=== PATIENT | female | born 1945 | race Caucasian/White ===

== ENCOUNTER 2018-07-24 10:28 | Outpatient (CLI) | payer MEDICARE, OTHER ==
[~2018-07-24] VITALS: Ht 171.4 cm; Wt 88.6 kg
--- NOTE | ~2018-07-24 | OP ---
PATIENT NAME: HORTENSIA WADE MEDICAL RECORD: [id number] :[birth year] LOCATION:D.CAT ADMISSION DATE: SURGEON: TYESHA RAMOS MD DATE OF OPERATION: 07/24/2018 PROCEDURES: 1. Left heart catheterization. 2. Selective coronary angiography. 3. Left ventriculogram. 4. Four-vessel carotid vertebral angiography. INDICATION: Angina, coronary artery disease, chest pain, abnormal ECG, dysrhythmia, syncope. PROCEDURE IN DETAIL: After informed consent was obtained and after detailed description of risks and benefits as well as alternative therapies, the patient elected to proceed with angiogram and heart catheterization. The right femoral area was prepped and draped in normal sterile fashion. Right femoral artery was recannulated via modified Seldinger technique with placement of 5-Malaysian sheath. All catheters were exchanged through this sheath. FINDINGS: There was subselection of each subclavian as well as left carotid. RIGHT SIDE: The common internal and external carotids have mild plaquing, none greater than 20%. No flow-limiting stenosis. Vertebral artery has no significant disease. LEFT SYSTEM: The common internal and external carotids have mild plaquing, none greater than 20%. No flow-limiting stenosis. Left ventriculogram was performed in standard 30-degree JACOBSON view, reveals good cardiac wall motion throughout all segments. Overall ejection fraction is estimated at 60%. SELECTIVE CORONARY ANGIOGRAPHY: Left main, left anterior descending, left circumflex, and right coronary are all smooth-walled vessels with no angiographic evidence of coronary artery disease. OVERALL IMPRESSION: 1. No angiographic evidence of coronary artery disease. 2. No significant carotid vascular disease is present. Unknown etiology of the syncope. Chest pain is noncardiac in etiology. We will give the patient a multiday monitor to monitor for dysrhythmia. TRANSINT:[id number] Voice Confirmation ID: [id number] DOCUMENT ID: [id number] TYESHA RAMOS MD at 1806 CC: [id number] DICTATION DATE: 07/24/18 1531 LOCKSTITCH BACK MAKER: 07/24/18 1632 DEP CLI 07/24/18 [place] [address]
--- NOTE | ~2018-07-24 | HEMODYNAMI ---
PATIENT:HORTENSIA WADE MEDICAL RECORD: [id number] : 49 LOCATION:[facility]IO ADMISSION DATE: 07/24/18 Generatedon:07/24/201815:34 Patient name: HORTENSIA WADE Patient #: [id number] SSN: : 1945 Date of study: 07/24/2018 Page: Of Hemodynamic Procedure Report Patient Data Patient Demographics Procedure consent was obtained First Name: HORTENSIA Gender: Female Last Name: MAURO : 1945 [facility] Initial: SCOTT Age: 72 year(s) Patient #: [id number] Race: Unknown Additional ID: [id number] Contact details [address]: [address] [place] [address] State: [place] City: [place] Zip code: [address] Admission Admission Data Admission Date: 07/24/2018 Admission Time: 10:28 Procedure Procedure Types Cath Procedure Diagnostic Procedure LHC LHC w/Coronaries Peripheral Cath Diagnostic Procedure Cath Peripheral Four Vessel Arteriogram Procedure Description Procedure Date Procedure Date: 07/24/2018 Procedure Start Time: 15:24 Procedure End Time: 15:30 Procedure Staff Name Function Fran Peña MD Performing Physician Deneen Lao RT Monitor Maddy Valadez RT Scrub Justin Sibley RN Nurse Procedure Data Cath Procedure Fluoroscopy Diagnostic fluoroscopy Total fluoroscopy Time: 1.2 time: 1.2 min min Diagnostic fluoroscopy Total fluoroscopy dose: 227 dose: 227 mGy mGy Contrast Material Contrast Material Type Amount (ml) Isovue 300 70 Entry Location Entry Primary Successful Side Size Upsize Upsize Entry Closure Succes sful Closure Location (Fr) 1 (Fr) 2 (Fr) Remarks Device Remarks Femoral Right 5 Fr Exoseal artery Estimated blood loss: 5 ml Diagnostic catheters Device Type Used For End Catheter Placement MULTIPACK Pigtail 5 Fr LV Angiography catheter MULTIPACK JL 4.0 5Fr Left Coronary catheter Angiography MULTIPACK 3DRC 5Fr Right Coronary catheter Angiography Procedure Complications No complications Procedure Medications Medication Administration Route Dosage Oxygen etCO2 Nasal cannula 2 l/min Lidocaine 2% added to field 20 Heparin Flush Bag added to field 2 bags (1000units/500ml NS) 0.9% NaCl I.V. 100 ml/hr Versed I.V. 2 mg Fentanyl I.V. 100 mcg Versed I.V. 1 mg Fentanyl I.V. 50 mcg Versed I.V. 1 mg Fentanyl I.V. 50 mcg Hemodynamics Rest Heart Rate: 91 (bpm) Snapshots Pre Cath Intra NCS Post Cath Vital Signs Time Heart Resp SPO2 NIBP (mmHg) Rhythm Pain Sedation Rate (ipm) (%) Status Level (bpm) 15:16:29 81 17 100 136/73(122) NSR 0 (11) 10(A) , No pain 15:20:35 83 12 99 137/75(105) NSR 0 (11) 10(A) , No pain 15:24:45 81 14 97 109/65(82) NSR 0 (11) 9(A) , No pain 15:28:44 82 15 99 121/68(96) NSR 0 (11) 10(A) , No pain Medications Time Medication Route Dose Verified Delivered Reason Notes Eff ectiveness by by 15:13:15 Oxygen etCO2 2 Fran Anderson used for Nasal l/min Mariana Sibley RN procedure cannula 15:13:21 Lidocaine 2% added 20ml Fran Peters for local to vial Mariana Peña MD anesthetic field 15:13:26 Heparin Flush added 2 Fran Fran used for Bag to bags Mariana Peña MD procedure (1000units/500ml field NS) 15:13:34 0.9% NaCl I.V. 100 Fran Kelleyie Per ml/hr Mariana Sibley RN physician 15:16:00 Fentanyl I.V. 100 Franjose alberto Kelleyie for mcg Mariana Sibley RN sedation 15:16:54 Versed I.V. 2 mg Fran Kelleyie for Mariana Sibley RN sedation 15:24:24 Versed I.V. 1 mg Fran Kelleyie for Mariana Sibley RN sedation 15:24:28 Fentanyl I.V. 50 Fran Kelleyie for mcg Mariana Sibley RN sedation 15:28:56 Versed I.V. 1 mg Fran Allieie for Mariana Sibley RN sedation 15:28:59 Fentanyl I.V. 50 Fran Kelleyie for mcg Tauth MD Sibley RN sedation Procedure Log Time Note 14:39:21 Diagnostic Cath Status : Elective 14:39:34 Justin Sibley RN sent for patient. Start room use. 14:39:35 Time tracking: Regular hours (M-F 7:00 - 5:00) 14:39:39 Plan of Care:Hemodynamics will remain stable., Cardiac rhythm will remain stable., Comfort level will be maintained., Respiratory function will remain adequate., Patient/ family verbilizes understanding of procedure., Procedure tolerated without complication., Recovers from procedure without complications.. 15:03:31 Patient received from ED to CCL 2 Alert and oriented. Tansferred to table in Supine position. 15:03:32 Warm blankets applied, and keith hugger turned on for patient comfort. 15:03:33 Correct patient and procedure confirmed by team. 15:03:34 Signed procedure consent form obtained from patient. 15:03:35 ECG and BP/O2 sat monitors applied to patient. 15:13:15 Oxygen 2 l/min etCO2 Nasal cannula was administered by Justin Sibley RN; used for procedure; 15:13:21 Lidocaine 2% 20ml vial added to field was administered by Fran Peña MD; for local anesthetic; 15:13:26 Heparin Flush Bag (1000units/500ml NS) 2 bags added to field was administered by Fran Peña MD; used for procedure; 15:13:34 0.9% NaCl 100 ml/hr I.V. was administered by Justin Sibley RN; Per physician; 15:14:17 Vital chart was started 15:14:21 Baseline sample Acquired. 15:14:24 Rhythm: sinus rhythm 15:14:25 Full Disclosure recording started 15:14:40 H&P Date Dictated: 07/24/2018 New H&P dictated by physician.. 15:14:41 Pre-procedure instructions explained to patient. 15:14:41 Pre-op teaching completed and patient verbalized understanding. 15:14:42 Family in waiting room. 15:14:43 Patient NPO since Midnight. 15:14:45 Is the patient allergic to Iodine/contrast media? No. 15:14:47 Was the patient premedicated? No 15:14:48 Is patient on blood thinner?Yes 15:14:51 ACC The patient was administered the following blood thiners within the last 24 hours: ACCPlavix 15:14:55 Patient diabetic? No. 15:14:58 Previous problem with sedation/anesthesia? No ? 15:14:59 Snore? Yes 15:15:00 Sleep apnea? No 15:15:01 Deviated septum? No 15:15:02 Opens mouth fully? Yes 15:15:02 Sticks out tongue? Yes 15:15:11 Airway obstruction? Yes lung scarring 15:15:13 Dentures? No ? 15:15:16 Pre procedure: right dorsailis pedis pulse 2+ Normal; easily identifiable; not easily obliterated 15:15:18 Pre procedure: left dorsailis pedis pulse 2+ Normal; easily identifiable; not easily obliterated 15:15:20 Patient pain scale 0/10 ?. 15:15:34 IV patent on arrival in left antecubital with 0.9% NaCl at O. 15:15:36 Lab results completed and on chart. 15:15:39 Right groin area was prepped with chlora-prep and draped in sterile fashion 15:15:40 Alarms reviewed by R. N. 15:15:40 Sharps counted by scrub and verified by R.N. 15:15:42 Physician arrived 15:15:42 --------ALL STOP TIME OUT------ 15:15:42 Final Timeout: patient, procedure, and site verified with staff and physician. All members of the team are in agreement. 15:15:44 Right groin site verified by team. 15:15:47 Physical assessment completed. ASA score P 2 - A patient with mild systemic disease as per Fran Peña MD. 15:15:50 Sedation plan: IV Moderate Sedation Medication:Versed, Fentanyl 15:15:57 Use device set Femoral Dx 15:15:58 ACIST Syringe (71221) opened to sterile field. 15:15:59 Bag Decanter () opened to sterile field. 15:15:59 Medline Cath Pack ([id number]) opened to sterile field. 15:16:00 Fentanyl 100 mcg I.V. was administered by Justin Sibley RN; for sedation; 15:16:00 DIAGNOSTIC WIRE .035 260cm J wire ([id number]) opened to sterile field. 15:16:01 ACIST Hand Control (09920) opened to sterile field. 15:16:01 ACIST Manifold (06051) opened to sterile field. 15:16:01 DIAGNOSTIC Multipack 5Fr catheter set ([id number]) opened to sterile field. 15:16:02 Tegaderm 4 x 4 (1626W) opened to sterile field. 15:16:03 SHEATH Prelude 5Fr 0.035 ([id number]) opened to sterile field. 15:16:15 Procedure type changed to Cath procedure, Diagnostic procedure, LHC, LHC w/Coronaries, Peripheral Cath Diagnostic Procedure, Cath Peripheral, Four Vessel Arteriogram 15:16:54 Versed 2 mg I.V. was administered by Justin Sibley RN; for sedation; 15:24:24 Versed 1 mg I.V. was administered by Justin Sibley RN; for sedation; 15:24:28 Fentanyl 50 mcg I.V. was administered by Justin Sibley RN; for sedation; 15:24:33 Procedure started. 15:24:37 Local anesthetic to right femoral artery with Lidocaine 2% by Fran Peña MD.INITIAL ACCESS ONLY 15:24:45 A 5 Fr sheath was inserted into the Right Femoral artery 15:24:53 A MULTIPACK Pigtail 5 Fr catheter was advanced over the wire and used for LV Angiography. 15:24:55 LV hemodynamics recorded. 15:24:56 LV gram done using JACOBSON 15:24:59 Injector settings: Ml/sec: 5, Volume: 15, 15:25:05 EF : 60 % 15:25:08 Catheter removed. 15:25:12 A MULTIPACK JL 4.0 5Fr catheter was advanced over the wire and used for Left Coronary Angiography. 15:25:36 LCA angiography performed. 15:25:39 Injector settings: Ml/sec: 3, Volume: 6, 15:26:16 Catheter removed. 15:26:21 A MULTIPACK 3DRC 5Fr catheter was advanced over the wire and used for Right Coronary Angiography. 15:26:47 RCA angiography performed. 15::50 Injector settings: Ml/sec: 3, Volume: 6, 15:28:01 Bilateral carotid angiography performed. 15:28:08 EXOSEAL 5Fr (EX500) opened to sterile field. 15:28:16 Catheter removed. 15::24 Sheath removed intact; hemostasis achieved with Exoseal to the Right Femoral artery. 15::41 Procedure ended.(Physican Out) 15::56 Versed 1 mg I.V. was administered by Justin Sibley RN; for sedation; 15::59 Fentanyl 50 mcg I.V. was administered by Justin Sibley RN; for sedation; 15::23 Fluoroscopy time 01.20 minutes. 15::28 Flurop Dose total: 227 15::28 Fluoroscopy dose: 227 mGy 15:29:36 Contrast amount:Isovue 300 70ml. 15:29:38 Sharps counted by scrub and verified by R.N. 15:29:39 Insertion/operative site no bleeding no hematoma. 15:29:42 Post-op/insertion site Right Femoral artery dressed using a 4 x 4 and Tegaderm. 15:29:44 Post right femoral artery:stable 15:29:46 Post Procedure Pulses reassessed and unchanged 15:29:49 Post procedure rhythm: unchanged. 15:29:51 Estimated blood loss: 5 ml 15:29:53 Post procedure instruction explained to patient.Patient verbalizes understanding. 15:29:53 Patient needs reinforcement of post procedure teaching. 15:29:53 Procedure and supply charges have been captured, reviewed, submitted and are correct. 15:29:57 Procedure Complication : No complications 15::59 Vital chart was stopped 15:30:00 See physician's report for complete and final results. 15:30:04 Report given to Pre/Post Procedure Room. 15:30:07 Patient transfered to Pre/Post Procedure Room with Stretcher. 15:30:09 Procedure ended. 15:30:09 Full Disclosure recording stopped 15:30:13 End room use (Document Last) Device Usage Item Name Manufacture Quantity Catalog Number Hospital Part Current M inimal Lot# / Charge Number Stock Stock Serial# Code ACIST Syringe Acist 1 [id number] [id number] 194401 [id number] 2 0 (01592) [employer] Bag Decanter Microtek 1 608115 92047 [id number] 5 () [employer] Inc[employer] Medline Cath Cardinal 1 [id number] 249997 94948 046856 5 [employer] [facility] ([id number]) DIAGNOSTIC WIRE St Jun 1 746943 635207 433963 835524 3 0 .035 260cm J wire (842143) ACIST Hand Acist 1 14081 556623 327803 825111 5 Control (36855) [employer] ACIST Manifold Acist 1 76538 965316 513458 467070 5 (92197) [employer] DIAGNOSTIC Cardinal 1 [id number] 527683 54004 206704 3 0 Multipack 5Fr Health catheter set (CG9990) Tegaderm 4 x 4 3M 1 1626W 038586 430982 884080 5 (1626W) SHEATH Prelude Merit 1 [id number] 869054 649256 559644 5 5Fr 0.035 Medical ([id number]-[id number]) MULTIPACK Cardinal 1 137364 5 Pigtail 5 Fr Health catheter MULTIPACK JL Cardinal 1 [id number] 5 4.0 5Fr Health catheter MULTIPACK 3DRC Cardinal 1 [id number] 5 5Fr catheter Health EXOSEAL 5Fr Cardinal 1 EX500 912216 715956 374631 1 0 (EX500) Health Signature Audit [place] Stage Time Signature Unsigned Intra-Procedure 07/24/2018 Deneen Lao 3:34:37 PM RT(R) Signatures Monitor : eDneen Lao RT Signature : Date : Time : [address] [address]
[2018-07-24 10:34] VITALS: Ht 171.4 cm; Wt 88.6 kg
[2018-07-24] MEDS ORDERED: DOXYCYCLINE HY100 M2 PO (10:35)
[2018-07-24] MEDS ORDERED: AVAPRO300 MG PO (10:36)
[2018-07-24] MEDS ORDERED: PROCARDIA10 MG PO (10:37)
[2018-07-24] MEDS ORDERED: MACRODANTIN50 MG PO (10:37)
[2018-07-24] MEDS ORDERED: HYDROCHLOROTHIA25 MG PO (10:37)
[2018-07-24] MEDS ORDERED: OLUX-E 0.05% FO50 GM (10:38)
[2018-07-24] MEDS ORDERED: ALORA1 PATCH.B1 TD (10:38)
[2018-07-24] MEDS ORDERED: OMEPRAZOLE20 M1 PO (10:38)
[2018-07-24 11:08] LABS: BASOPHILS 0.2 % (0-2); EOSINOPHILS 0.3 % (0-7); HEMATOCRIT 43.7 % (36.0-48.0); HEMOGLOBIN 14.7 g/dL (12-16); IMMATURE GRANULOCYTES 0.4 % (0-5); LYMPHOCYTES 15.1 % (15-50); MCH 31.3 pg (26.0-34.0); MCHC 33.6 g/dL (31.0-37.0); MCV 93.2 fL (80.0-100.0); MEAN PLATELET VOLUME 11.3 fL (7.4-10.4); MONOCYTES 10.9 % (2-11); NEUTROPHILS 73.1 % (40-80); PLATELET COUNT 284 10x3/uL (130-400); RBC 4.69 10x6/uL (4.00-5.40); RDW 13.6 % (11.5-14.5); WBC 9.1 10x3/uL (4.8-10.8)
[2018-07-24 11:22] LABS: ALBUMIN 3.1 g/dL (3.4-5.0); ALKALINE PHOSPHATASE 106 U/L (46-116); ALT (SGPT) 20 U/L (10-68); BILIRUBIN - TOTAL 0.67 mg/dL (0.2-1.3); CALC OSMOLALITY 272 mosm/kg (275-300); CALCIUM 8.6 mg/dL (8.5-10.1); CARBON DIOXIDE 30.2 mmol/L (21.0-32.0); CHLORIDE - SERUM 100 mmol/L (98-107); CREATININE - SERUM 1.1 mg/dL (0.6-1.3); GLUCOSE 105 mg/dL (74-106); POTASSIUM - SERUM 3.3 mmol/L (3.5-5.1); PROTEIN - SERUM 7.7 g/dL (6.4-8.2); SODIUM 135 mmol/L (136-145); UREA NITROGEN 20 mg/dL (7-18); eGFR NON AFRICAN AMERICAN 52 mL/min (90-120)
[2018-07-24 11:38] LABS: CKMB 0.4 U/L (0.0-3.6); CREATINE KINASE 23 UL (21-215); PRO BNP 48 pg/mL (0-125)
[2018-07-24] MEDS ORDERED: DYAZIDE 37.5/251 CAP PO (11:38)
[2018-07-24 11:39] LABS: TROPONIN-I < 0.017 ng/mL (0.000-0.060)
[2018-07-24 12:05] LABS: APPEARANCE SL CLDY (CLEAR); BILIRUBIN NEGATIVE (NEGATIVE); COLOR YELLOW (YELLOW); GLUCOSE NEGATIVE (NEGATIVE); KETONE NEGATIVE (NEGATIVE); NITRITE NEGATIVE (NEGATIVE); PROTEIN NEGATIVE (NEGATIVE); SPECIFIC GRAVITY 1.015 (1.005-1.020); UROBILINOGEN NORMAL (NORMAL)
[2018-07-24 15:15] VITALS: BP 136/74
== END 2018-07-24 17:55 ==
LOC: D.CATH 10:28 → D.ER 10:28 → EDSTATUS 12:38 → D.CATH 17:55
PROVIDERS: Emergency Medicine
DX: R07.89 Other chest pain (principal); R55 Syncope and collapse; Z01.812 Encounter for preprocedural laboratory examination

== ENCOUNTER → 2019-09-05 07:47 | Outpatient (CLI) | payer MEDICARE, BC ==
[2018-07-24 10:34] VITALS: BMI 30.1
[~2019-09-05 07:47] MED LIST: ALORA1 PATCH.B1 TD; AVAPRO300 MG PO; DOXYCYCLINE HY100 M2 PO; DYAZIDE 37.5/251 CAP PO; HYDROCHLOROTHIA25 MG PO; MACRODANTIN50 MG PO; OLUX-E 0.05% FO50 GM; OMEPRAZOLE20 M1 PO; PROCARDIA10 MG PO
== END | disposition home or self-care (01) ==
LOC: D.RT 07:47
PROVIDERS: ATTEND Internal Medicine Pulmonary Disease
DX: J45.909 Unspecified asthma, uncomplicated (principal)